=== PATIENT | female | born 1965 | race Caucasian/White ===

== ENCOUNTER 2025-05-07 05:42 | Inpatient (IN) | payer BC, OTHER, SELFPAY ==
[2025-05-07] VITALS (7 sets, daily range): BP systolic 104–149; BP diastolic 68–87; TEMP 97.3–98.1; O2SAT 93–98
[~2025-05-07] VITALS: Ht 175.3 cm; Wt 134.0 kg
[2025-05-07] MEDS ORDERED: AMPICILLIN SOD/SULBACTAM SOD 3 GM in DEXTROSE 5% (D5W) MINI-BAG PLU 100 ML IV ONE (08:05)
[2025-05-07] MEDS ORDERED: MORPHINE 2 MG/ML 1 ML VIAL IV PRN ×2 (09:10→15:35)
[2025-05-07 09:14] LABS: BASO # 0.1 10^3/uL (0.0-0.2); BASO % 0.3 % (0.0-1.0); EOS # 0.2 10^3/uL (0.0-0.5); EOS % 1.1 % (0.0-3.0); LYMPH # 1.6 10^3/uL (1.5-5.0); LYMPH % 10.3 % (24.0-44.0); MONO # 1.0 10^3/uL (0.0-0.8); MONO % 6.3 % (2.0-8.0); NEUTROPHILS # 13.0 10^3/uL (1.5-8.5); NEUTROPHILS % 81.6 % (36.0-66.0); PLATELET COUNT, AUTOMATED 322 10^3/uL (150-450)
[2025-05-07] MEDS: ONDANSETRON 4MG 2ML VIAL IV ONE (09:20)
[2025-05-07] MEDS: ACETAMINOPHEN *IV* 1,000 MG in IV 1 EA IV ONE (09:21)
[2025-05-07] MEDS: cefTRIAXone SOD 2 GM in DEXTROSE 5% (D5W) ADV/MINI-BAG 50 ML IV ONE (09:59)
[2025-05-07 10:37] LABS: ALT/SGPT 19.0 U/L (7.0-40); AST/SGOT 19.0 U/L (<34); C REACTIVE PROTEIN QUANTITATIV 15.32 MG/DL (<1.0); CALCIUM LEVEL 9.1 MG/DL (8.5-10.1); CARBON DIOXIDE LEVEL 29.0 MMOL/L (20-31); CHLORIDE LEVEL 99.0 MMOL/L (98-107); CREATININE FOR GFR 1.29 MG/DL (0.55-1.30); GLOMERULAR FILTRATION RATE 48.4 (>51); POTASSIUM SERUM 3.9 MMOL/L (3.5-5.1); SODIUM LEVEL 140.0 MMOL/L (136-145)
[2025-05-07] MEDS: DOXYCYCLINE HYCLATE 100 MG in DEXTROSE 5% (D5W) MINI-BAG PLU 100 ML IV ONE (10:50)
[2025-05-07 12:40] LABS: ERYTHROCYTE SEDIMENTATION RATE 109 mm/hr (0-30)
[2025-05-07] MEDS: dexAMETHasone 4 MG/ML 1 ML VIAL As Ordered ONE (14:19)
[2025-05-07] MEDS ORDERED: MIDAZOLAM INJ 2 MG/2 ML VIAL As Ordered ONE (14:28)
[2025-05-07] MEDS ORDERED: FLUO-365 PO (14:30)
[2025-05-07] MEDS ORDERED: METF10004 PO (14:30)
[2025-05-07] MEDS ORDERED: CYAN100017 IM (14:30)
[2025-05-07] MEDS ORDERED: TIRZ2.5P INJ (14:30)
[2025-05-07] MEDS: VANCOMYCIN HCL 1,500 MG, VIAL MATE ADAPTER 1 EACH in NS 500 ML IV ONE ×2 (14:30→19:49)
[2025-05-07] MEDS ORDERED: HOME MED LIST COMPLETE! XX SCH (14:30)
[2025-05-07] MEDS ORDERED: LEVO50TA5 PO (14:30)
[2025-05-07] MEDS ORDERED: ATOR1TAB21 PO (14:30)
[2025-05-07] MEDS ORDERED: ONDANSETRON 4MG 2ML VIAL As Ordered ONE (14:31)
[2025-05-07] MEDS ORDERED: LIDOCAINE 2% 100 MG/5 ML SDV (FOR ANES.) As Ordered ONE (14:33)
[2025-05-07] MEDS ORDERED: ACETAMINOPHEN 1000MG/100ML IV BAG As Ordered ONE (15:21)
[2025-05-07] MEDS: LIDOCAINE 2% MDV 20 ML VIAL As Ordered ONE (15:27)
[2025-05-07] MEDS: GENTAMICIN SULF 80 MG/2 ML VIAL As Ordered ONE (15:27)
[2025-05-07] MEDS ORDERED: KETOROLAC 30 MG/ML 1 ML VIAL As Ordered ONE (15:29)
[2025-05-07] MEDS ORDERED: HYDROMORPHONE HCL 0.5 MG/0.5 ML SYRINGE IV PRN (15:35)
[2025-05-07] MEDS ORDERED: ALBUTEROL SULFATE 2.5 MG/0.5 ML INH CONCENTRATE NEB SOLN NEB PRN (16:35)
[2025-05-07] MEDS: PIPERACILLIN/TAZOBACTAM SOD 4.5 GM in DEXTROSE 5% (D5W) ADV/MINI-BAG 50 ML IV SCH (22:17)
[2025-05-07] MEDS: ATORVASTATIN 20 MG TAB PO SCH (22:17)
[2025-05-07] MEDS: DOCUSATE SODIUM 100 MG CAPSULE PO SCH (22:17)
[2025-05-08] VITALS (8 sets, daily range): BP systolic 130–186; BP diastolic 71–96; TEMP 97–97.5; O2SAT 92–96
[2025-05-08] MEDS: ACETAMINOPHEN 325 MG TAB PO PRN (00:32)
[2025-05-08] MEDS: LEVOTHYROXINE 50 MCG TABLET (0.05 MG) PO SCH (05:20)
[2025-05-08 06:53] LABS: BASO # 0.1 10^3/uL (0.0-0.2); BASO % 0.5 % (0.0-1.0); EOS # 0.6 10^3/uL (0.0-0.5); EOS % 6.4 % (0.0-3.0); LYMPH # 1.7 10^3/uL (1.5-5.0); LYMPH % 17.3 % (24.0-44.0); MONO # 0.8 10^3/uL (0.0-0.8); MONO % 8.6 % (2.0-8.0); NEUTROPHILS # 6.5 10^3/uL (1.5-8.5); NEUTROPHILS % 67.0 % (36.0-66.0); PLATELET COUNT, AUTOMATED 253 10^3/uL (150-450)
[2025-05-08 07:10] LABS: C REACTIVE PROTEIN QUANTITATIV 9.99 MG/DL (<1.0); VANCOMYCIN RANDOM 13.2 UG/ML
[2025-05-08 07:11] LABS: CALCIUM LEVEL 8.5 MG/DL (8.5-10.1); CARBON DIOXIDE LEVEL 28.0 MMOL/L (20-31); CHLORIDE LEVEL 98.0 MMOL/L (98-107); CREATININE FOR GFR 1.46 MG/DL (0.55-1.30); GLOMERULAR FILTRATION RATE 41.7 (>51); POTASSIUM SERUM 3.7 MMOL/L (3.5-5.1); SODIUM LEVEL 139.0 MMOL/L (136-145)
[2025-05-08] MEDS: VANCOMYCIN HCL 1,000 MG, VIAL MATE ADAPTER 1 EACH in NS 250 ML IV SCH (08:23)
[2025-05-08] MEDS: FLUoxetine 20 MG CAP PO SCH (08:23)
[2025-05-08] MEDS: ENOXAPARIN 40 MG/0.4 ML SYRINGE (J1650 PER 10MG) SC SCH (08:23)
[2025-05-08] MEDS: amLODIPine 5 MG TAB PO SCH (14:21)
[2025-05-08] MEDS: VANCOMYCIN HCL 750 MG, VIAL MATE ADAPTER 1 EACH in NS 250 ML IV SCH (21:40)
[2025-05-09 04:12] VITALS: BP 134/78; TEMP 97; O2SAT 98
[2025-05-09 06:30] LABS: BASO # 0.1 10^3/uL (0.0-0.2); BASO % 0.8 % (0.0-1.0); EOS # 0.6 10^3/uL (0.0-0.5); EOS % 7.3 % (0.0-3.0); LYMPH # 1.5 10^3/uL (1.5-5.0); LYMPH % 17.5 % (24.0-44.0); MONO # 0.7 10^3/uL (0.0-0.8); MONO % 8.1 % (2.0-8.0); NEUTROPHILS # 5.5 10^3/uL (1.5-8.5); NEUTROPHILS % 66.1 % (36.0-66.0); PLATELET COUNT, AUTOMATED 266 10^3/uL (150-450)
[2025-05-09 06:58] LABS: CALCIUM LEVEL 8.7 MG/DL (8.5-10.1); CARBON DIOXIDE LEVEL 28.0 MMOL/L (20-31); CHLORIDE LEVEL 101.0 MMOL/L (98-107); CREATININE FOR GFR 1.33 MG/DL (0.55-1.30); GLOMERULAR FILTRATION RATE 46.7 (>51); POTASSIUM SERUM 4.0 MMOL/L (3.5-5.1); SODIUM LEVEL 140.0 MMOL/L (136-145)
[2025-05-09] MEDS ORDERED: amLODIPine 10 MG TAB PO SCH (09:00)
[2025-05-09 12:00] VITALS: BP 132/77; TEMP 96.8; O2SAT 89
[2025-05-09 21:19] VITALS: BP 131/74; TEMP 97.7; O2SAT 94
[2025-05-10 05:57] LABS: BASO # 0.1 10^3/uL (0.0-0.2); BASO % 1.0 % (0.0-1.0); EOS # 0.5 10^3/uL (0.0-0.5); EOS % 6.5 % (0.0-3.0); LYMPH # 2.0 10^3/uL (1.5-5.0); LYMPH % 24.5 % (24.0-44.0); MONO # 0.6 10^3/uL (0.0-0.8); MONO % 7.7 % (2.0-8.0); NEUTROPHILS # 4.8 10^3/uL (1.5-8.5); NEUTROPHILS % 60.1 % (36.0-66.0); PLATELET COUNT, AUTOMATED 291 10^3/uL (150-450)
[2025-05-10 06:22] LABS: C REACTIVE PROTEIN QUANTITATIV 4.11 MG/DL (<1.0); VANCOMYCIN RANDOM 13.7 UG/ML
[2025-05-10 06:23] LABS: CALCIUM LEVEL 8.5 MG/DL (8.5-10.1); CARBON DIOXIDE LEVEL 26.0 MMOL/L (20-31); CHLORIDE LEVEL 104.0 MMOL/L (98-107); CREATININE FOR GFR 1.18 MG/DL (0.55-1.30); GLOMERULAR FILTRATION RATE 53.9 (>51); POTASSIUM SERUM 4.5 MMOL/L (3.5-5.1); SODIUM LEVEL 143.0 MMOL/L (136-145)
[2025-05-10 06:45] VITALS: BP 145/84; TEMP 97.2; O2SAT 94
[2025-05-10 12:00] VITALS: BP 126/91; TEMP 97; O2SAT 96
[2025-05-10 20:32] VITALS: BP 164/89; TEMP 97.7; O2SAT 97
[2025-05-11 03:48] VITALS: BP 136/72; TEMP 97.3; O2SAT 96
[2025-05-11 06:33] LABS: BASO # 0.1 10^3/uL (0.0-0.2); BASO % 0.9 % (0.0-1.0); EOS # 0.4 10^3/uL (0.0-0.5); EOS % 4.7 % (0.0-3.0); LYMPH # 2.2 10^3/uL (1.5-5.0); LYMPH % 25.5 % (24.0-44.0); MONO # 0.6 10^3/uL (0.0-0.8); MONO % 6.7 % (2.0-8.0); NEUTROPHILS # 5.4 10^3/uL (1.5-8.5); NEUTROPHILS % 62.0 % (36.0-66.0); PLATELET COUNT, AUTOMATED 317 10^3/uL (150-450)
[2025-05-11 07:11] LABS: CALCIUM LEVEL 9.6 MG/DL (8.5-10.1); CARBON DIOXIDE LEVEL 25.0 MMOL/L (20-31); CHLORIDE LEVEL 103.0 MMOL/L (98-107); CREATININE FOR GFR 1.18 MG/DL (0.55-1.30); GLOMERULAR FILTRATION RATE 53.9 (>51); POTASSIUM SERUM 4.4 MMOL/L (3.5-5.1); SODIUM LEVEL 141.0 MMOL/L (136-145)
[2025-05-11 08:31] LABS: C REACTIVE PROTEIN QUANTITATIV 2.87 MG/DL (<1.0)
[2025-05-11 08:44] VITALS: BP 142/72
[2025-05-11 12:00] VITALS: BP 163/85; TEMP 97.9; O2SAT 98
[2025-05-11] MEDS ORDERED: PROB250C PO (13:03)
[2025-05-11] MEDS ORDERED: AMLO1TAB24 PO (13:03)
[2025-05-11] MEDS ORDERED: LEVO1TAB40 PO (13:03)
[2025-05-11] MEDS ORDERED: ACET32TAB PO (13:03)
[2025-05-11] MEDS ORDERED: METR-265 PO (13:03)
[2025-05-11] MEDS ORDERED: COLA100C5 PO (13:03)
[2025-05-11] MEDS ORDERED: TRAM50TA2 PO (13:08)
== END 2025-05-11 13:53 | disposition home or self-care (01) | DRG 383 ==
LOC: M ED 05:42 → CMPBEDREQ 12:27 → M SDC 14:17 → M MSPAV 14:18
PROVIDERS: ADMIT Internal Medicine Nephrology; ATTEND Internal Medicine
PROC: 0JBQ0ZZ Excision of Right Foot Subcutaneous Tissue and Fascia, Open Approach (ICD-10-PCS; principal; 2025-05-07 13:51)
DX: L02.611 Cutaneous abscess of right foot (principal); E11.42 Type 2 diabetes mellitus with diabetic polyneuropathy; E11.22 Type 2 diabetes mellitus with diabetic chronic kidney disease; N17.9 Acute kidney failure, unspecified; N18.30 Chronic kidney disease, stage 3 unspecified; E66.01 Morbid (severe) obesity due to excess calories; Z68.41 Body mass index [BMI] 40.0-44.9, adult; I12.9 Hypertensive chronic kidney disease with stage 1 through stage 4 chronic kidney disease, or unspecified chronic kidney disease; J45.909 Unspecified asthma, uncomplicated; E03.9 Hypothyroidism, unspecified; L40.9 Psoriasis, unspecified; G47.33 Obstructive sleep apnea (adult) (pediatric); Z79.890 Hormone replacement therapy; Z79.84 Long term (current) use of oral hypoglycemic drugs; Z79.899 Other long term (current) drug therapy; Z88.2 Allergy status to sulfonamides; Z88.8 Allergy status to other drugs, medicaments and biological substances; Z90.49 Acquired absence of other specified parts of digestive tract

== ENCOUNTER → 2025-06-16 | Outpatient (REF) | payer BC ==
[~2025-06-16] MED LIST: ACET32TAB PO; AMLO1TAB24 PO; ATOR1TAB21 PO; COLA100C5 PO; CYAN100017 IM; FLUO-365 PO; LEVO1TAB40 PO; LEVO50TA5 PO; METF10004 PO; METR-265 PO; PROB250C PO; TIRZ2.5P INJ; TRAM50TA2 PO
== END ==
LOC: M LAB REF 17:19
PROVIDERS: ATTEND Podiatrist
DX: L03.032 Cellulitis of left toe (principal)

== ENCOUNTER → 2025-07-14 | Outpatient (CLI) | payer BC ==
[2025-07-14 18:05] LABS: ALT/SGPT 24.0 U/L (7.0-40); AST/SGOT 23.0 U/L (<34); CALCIUM LEVEL 9.4 MG/DL (8.5-10.1); CARBON DIOXIDE LEVEL 28.0 MMOL/L (20-31); CHLORIDE LEVEL 101.0 MMOL/L (98-107); CHOLESTEROL LEVEL 195.0 MG/DL (<200); CHOLESTEROL RISK RATIO 3.65 (<5); CREATININE FOR GFR 1.23 MG/DL (0.55-1.30); GLOMERULAR FILTRATION RATE 51.3 (>51); LDL CHOLESTEROL 107.5 MG/DL (<100); NON-HDL-C 141.7 MG/DL; POTASSIUM SERUM 4.2 MMOL/L (3.5-5.1); SODIUM LEVEL 141.0 MMOL/L (136-145); TRIGLYCERIDES LEVEL 171.0 MG/DL (<150)
[2025-07-14 18:13] LABS: ESTIMATED AVERAGE GLUCOSE 148.0 MG/DL (60-110)
== END ==
LOC: M LAB 16:49
PROVIDERS: ATTEND Nurse Practitioner
DX: E11.9 Type 2 diabetes mellitus without complications (principal)

== ENCOUNTER → 2025-09-08 | Outpatient (REF) | payer BC | LOC: M LAB REF 16:48 | PROVIDERS: ATTEND Podiatrist | DX: L03.119 Cellulitis of unspecified part of limb (principal) ==